=== PATIENT | female | born 1980 | race Caucasian/White ===

== ENCOUNTER 2017-06-09 19:20 | Inpatient (IN) | payer BC ==
[~2017-06-09] VITALS: Ht 162.6 cm; Wt 87.3 kg
[2017-06-09 20:00] VITALS: BP 122/76; PULSE 72; TEMP 97.7
[2017-06-09 20:30] VITALS: BP 102/66; PULSE 76
[2017-06-09 23:00] VITALS: BP 127/80; PULSE 93
[2017-06-09 23:15] VITALS: BP 118/58; PULSE 87
[2017-06-09 23:20] LABS: BASO % 0.5 % (0.0-2.0); EOS # 0.1 (0.0-0.7); EOS % 1.6 % (0-4.0); GRAN # 5.6 (1.4-6.5); GRAN % 64.2 % (42.2-75.2); HEMATOCRIT 36.1 % (37.0-47.0); HEMOGLOBIN 12.1 g/dl (12.5-16.0); LYMPH # 2.3 (1.2-3.4); LYMPH % 25.9 % (20.0-51.0); MEAN CELL VOLUME 89 fl (80.0-100.0); MEAN CORPUSCULAR HEMOGLOBIN 30 pg (27.0-31.0); MEAN CORPUSCULAR HGB CONC 34 g/dl (33.0-37.0); MEAN PLATELET VOLUME 10.5 fl (7.4-10.4); MONO # 0.6 (0.1-0.6); MONO % 7.1 % (1.7-9.3); PLATELET COUNT 231 K/mm3 (130-400); RED BLOOD COUNT 4.06 M/mm3 (4.10-5.30); WHITE BLOOD COUNT 8.7 K/mm3 (4.8-10.8)
[2017-06-09 23:30] VITALS: BP 107/65; PULSE 86
[2017-06-09 23:45] VITALS: BP 114/56; PULSE 84; TEMP 98
[2017-06-10] VITALS (16 sets, daily range): BP systolic 95–123; BP diastolic 53–72; PULSE 56–87; TEMP 97.7–98.1
[2017-06-11 08:35] VITALS: BP 125/84; PULSE 73; TEMP 97.5
[2017-06-11] MEDS ORDERED: IBU600 MG PO (08:50)
== END 2017-06-11 10:40 | disposition home or self-care (01) | DRG 775 ==
LOC: LDRO 19:20 → LDR 21:55 → LDRO 22:00 → LDR 22:00 → OB 06-10 04:10
PROVIDERS: Obstetrics & Gynecology
PROC: 10E0XZZ Delivery of Products of Conception, External Approach (ICD-10-PCS; principal; 2017-06-09)
DX: O80 Encounter for full-term uncomplicated delivery (principal); Z3A.39 39 weeks gestation of pregnancy; Z37.0 Single live birth
CPT/HCPCS: J2405; J2590; J7120